=== PATIENT | female | born 1995 | race Caucasian/White ===

== ENCOUNTER 2021-08-08 20:18 | Emergency (ER) | payer OTHER ==
[~2021-08-08] VITALS: Ht 149.9 cm; Wt 64.0 kg
[2021-08-08] MEDS ORDERED: AMOXICILLIN 500 MG CAPSULE PO ONE (23:45)
[2021-08-08] MEDS ORDERED: KETOROLAC 30MG/ML VIAL IM ONE (23:45)
[2021-08-08] MEDS ORDERED: IBUP-2029 MT (23:45)
[2021-08-08] MEDS ORDERED: AMOX-494 MT (23:45)
[2021-08-09 00:41] VITALS: BP 122/66
== END 2021-08-09 00:45 | disposition home or self-care (01) ==
LOC: ER 20:18
DX: J02.9 Acute pharyngitis, unspecified (principal)
CPT/HCPCS: 81025; 96372; 99283; J1885